=== PATIENT | male | born 1970 | race Two or more races ===

== ENCOUNTER 2024-12-15 12:51 | Inpatient (IN) | payer MEDICAID, OTHER ==
[~2024-12-15] VITALS: Ht 167.6 cm; Wt 96.5 kg
[2024-12-15 02:28] VITALS: PULSE 88; RESP 16
[2024-12-15 13:44] VITALS: PULSE 65; RESP 17; O2SAT 95
--- NOTE | 2024-12-15 13:45 | DVH ---
CHEST RADIOGRAPH Indication: chest pain Technique: Single frontal view of the chest was obtained Comparison: None FINDINGS: Lines and Tubes: None Lungs: No focal consolidation. Pleura: No effusion. No pneumothorax. Cardiomediastinal contours: Unremarkable Bones: Median sternotomy. IMPRESSION: No acute cardiopulmonary disease.
--- NOTE | 2024-12-15 13:59 | ED.PDOC ---
HPI Comments 53Y M with PMHx DM, HTN, CHF, AK, and CABG x3 presents to ED via EMS with chief complaint chest pain x10 days with cough, fever, nausea, vomiting, diarrhea, and constipation. Pt states chest pain radiates to upper torso. Pt denies SOB and dizziness. Per pt, Percocet and Ibuprofen helped relieve the pain last night. Pt had CABG procedure performed on 07/09/2024 at [facility]. No other symptoms/history reported. Chief Complaint: Flu like Time Seen by MD: 13:50 Reviewed Notes: Nurses Notes, Sound Tester Notes, Medications, Allergies Allergies: Coded Allergies: NO KNOWN ALLERGIES (Unverified , 12/15/24) Information Source: Patient, Emergency Med Personnel Mode of Arrival: EMS Brought in by: EMS Severity: Moderate Timing: Days Duration: Since onset Prehospital treatment: 12 Lead EKG Location: Substernal Radiation: Other (torso) Quality: Other Onset: At Rest Cardiac Risk Factors: HTN, Diabetes, Other PE Risk Factors: Recent Surgery History of: Similar pain in past, AK Modifying Factors: Nothing Associated Signs and Symptoms: N/V, Other Past Medical History PAST MEDICAL HISTORY: CHF, DM, HTN, AK Surgical History: CABG Family History Family History: Unknown Social History Smoker: Non-Smoker Alcohol: Denies ETOH Use Drugs: Denies Drug Use Lives In: Home Constitutional: reports: fever; denies: chills, diaphoresis, fatigue, malaise, sweats, weakness, others EENTM: denies: blurred vision, double vision, ear bleeding, ear discharge, ear drainage, ear pain, ear ringing, eye pain, eye redness, hearing loss, mouth pain, mouth swelling, nasal discharge, nose bleeding, nose congestion, nose pain, photophobia, tearing, throat pain, throat swelling, voice changes, others Respiratory: reports: cough; denies: hemoptysis, orthopnea, SOB at rest, shortness of breath, SOB with excertion, stridor, wheezing, others Cardiovascular: reports: chest pain; denies: dizzy spells, diaphoresis, Dyspnea on exertion, edema, irregular heart beat, left arm pain, lightheadedness, palpitations, PND, syncope, others Gastrointestinal: reports: constipated, diarrhea, nausea, vomiting; denies: abdomen distended, abdominal pain, blood streaked bowels, dysphagia, difficulty swallowing, hematemesis, melena, poor appetite, poor fluid intake, rectal bleeding, rectal pain, others Genitourinary: denies: burning, dysuria, flank pain, frequency, hematuria, incontinence, penile discharge, penile sore, pain, testicle pain, testicle swelling, urgency, others Neurological: denies: dizziness, fainting, headache, left sided numbness, left sided weakness, numbness, paresthesia, pre-existing deficit, right sided numbness, right sided weakness, seizure, speech problems, tingling, tremors, weakness, others Musculoskeletal: denies: back pain, gout, joint pain, joint swelling, muscle pain, muscle stiffness, neck pain, others Integumetry: denies: bruises, change in color, change in hair/nails, dryness, laceration, lesions, lumps, rash, wounds, others Allergic/Immunocompromised: denies: Difficulty Healing, Frequent Infections, Hives, Itching, others Hematologic/Lymphatic: denies: anemia, blood clots, easy bleeding, easy bruising, swollen glands, others Endocrine: denies: excessive hunger, excessive sweating, excessive thirst, excessive urination, flushing, intolerance to cold, intolerance to heat, unexplained weight gain, unexplained weight loss, others Psychiatric: denies: anxiety, bipolar disorder, depression, hopeless, panic disorder, schizophrenia, sleepless, suicidal, others All Other Systems: Reviewed and Negative Physical Exam General Appearance: No Apparent Distress, Normal HEENT: Normal ENT Inspection, Pharynx Normal, TMs Normal Neck: Full Range of Motion, Non-Tender, Normal, Normal Inspection Respiratory: Chest Non-Tender, Lungs Clear, No Accessory Muscle Use, No Respiratory Distress, Normal Breath Sounds Cardiovascular: No Edema, No JVD, No Murmur, No Gallop, Normal Peripheral Pulses, Regular Rate/Rhythm Breast Exam: Deferred Gastrointestinal: No Organomegaly, Non Tender, No Pulsatile Mass, Normal Bowel Sounds, Soft Genitalia: Deferred Pelvic: Deferred Rectal: Deferred Extremities: No calf tenderness, Normal capillary refill, Normal inspection, Normal range of motion, Non-tender, No pedal edema Musculoskeletal : Apperance: Normal Neurologic: Alert, manager quality compliance II-XII nml as Tested, No Motor Deficits, Normal Affect, Normal Mood, No Sensory Deficits Cerebellar Function: NOT DONE Reflexes: NOT DONE Skin: Dry, Normal Color, Warm Lymphatic: No Adenopathy Was a procedure done? Was a procedure done?: No CP Differential Dx Differential Diagnosis: MAT, AK Differential Diagnosis: HTN Essential, HTN Accelerated Differential Diagnosis: Chest Wall Pain, Myocardial Infarction, Pericarditis X-Ray, Labs, Meds, VS Vital Signs Date Time Temp Pulse Resp B/P (MAP) Pulse Ox O2 Delivery O2 Flow Rate FiO2 12/15/24 16:35 63 19 106/69 (81) 95 12/15/24 15:57 62 12/15/24 13:55 64 12/15/24 13:44 65 17 95 Nasal Cannula* 2 28 12/15/24 13:43 98.2 65 17 120/82 (95) 95 98.2 12/15/24 13:25 67 12/15/24 13:04 98.6 75 16 128/87 (101) 100 98.6 12/15/24 12:55 66 Lab Test 12/15/24 16:51 12/15/24 14:54 12/15/24 13:46 Range/Units Troponin I High Sensitivity Pending < 3 L < 3 L </=54 ng/L White Blood Count 4.5 4.4-10.8 10^3/uL Red Blood Count 4.62 4.5-5.90 10^6/uL Hemoglobin 14.3 13.5-17.5 g/dL Hematocrit 42.3 41.0-53.0 % Mean Corpuscular Volume 91.7 80.0-100.0 fL Mean Corpuscular Hemoglobin 30.9 28.0-32.0 pg Mean Corpuscular Hemoglobin Concent 33.7 32.0-36.0 g/dL Red Cell Distribution Width 15.2 H 11.8-14.3 % Platelet Count 241 140-450 10^3/uL Mean Platelet Volume 8.5 6.9-10.8 fL Neutrophils (%) (Auto) 39.9 37.0-80.0 % Lymphocytes (%) (Auto) 48.2 10.0-50.0 % Monocytes (%) (Auto) 8.2 0.0-12.0 % Eosinophils (%) (Auto) 3.2 0.0-7.0 % Basophils (%) (Auto) 0.5 0.0-2.0 % Neutrophils # (Auto) 1.8 1.6-8.6 10 ^3/uL Lymphocytes # (Auto) 2.2 0.4-5.4 10 ^3/uL Monocytes # (Auto) 0.4 0-1.3 10 ^3/uL Eosinophils # (Auto) 0.1 0-0.8 10 ^3/uL Basophils # (Auto) 0 0-0.2 10 ^3/uL Nucleated Red Blood Cells 0.2 % Sodium Level 139 136-145 mmol/L Potassium Level 4.6 3.5-5.1 mmol/L Chloride Level 107 98-107 mmol/L Carbon Dioxide Level 22 20-31 mmol/L Anion Gap 10 5-15 Blood Urea Nitrogen 24 H 9-23 mg/dL Creatinine 1.01 0.700-1.30 mg/dL Glomerular Filtration Rate Calc 88 >90 mL/min BUN/Creatinine Ratio 23.8 H 10.0-20.0 Serum Glucose 127 H 74-106 mg/dL Calcium Level 10.4 8.7-10.4 mg/dL [place] [id number] Ph: [phone] DIAGNOSTIC IMAGING Diagnostic Imaging Report : [id number] Signed PATIENT: GEMMA DUMONT ACCT: [id number] UNIT: [id number] : 1970 LOC: ER ROOM / BED: / AGE / SEX: 53 / M ADM STATUS: REG ER SERVICE 1320 ORDERING PHYSICIAN: HARJIT NIELSEN MD PROCEDURE(s): CXRP - CHEST PORTABLE REASON: chest pain ORDER NUMBER(s): [id number], ACCESSION NUMBER(s): [id number] CHEST RADIOGRAPH Indication: chest pain Technique: Single frontal view of the chest was obtained Comparison: None FINDINGS: Lines and Tubes: None Lungs: No focal consolidation. Pleura: No effusion. No pneumothorax. Cardiomediastinal contours: Unremarkable Bones: Median sternotomy. IMPRESSION: No acute cardiopulmonary disease. ATED BY: NGUYỄN REDMOND MD DICTATED DATE/TIME: 12/15/24 1343 SIGNED BY: NGUYỄN REDMOND MD SIGNED DATE/TIME: 12/15/24 1343 CC: Time of 1ST Reevaluation: 14:20 Reevaluation 1ST: Unchanged Patient Education/Counseling: Diagnosis, Treatment Family Education/Counseling: No Family Present Departure 1 Departure Time of Disposition: 17:24 (Patient presented with chest pain that was concerning for possible STEMI, ACS, PE, Pneumonia, Muscle Strain, COPD, Dissection. Data: 1. I ordered and reviewed the result of at least 3 labs including a CBC, BMP, and Troponin. 2. I independently interpreted the following tests: EKG which shows sinus arrhythmia and Chest X-ray which shows benign chest.Risk:This patient has a high risk of morbidity due to further diagnostic testing or treatment and may suffer from an acute cardiac or respiratory disorder. Workup reveals concern for ACS and patient should be admitted for further workup and possible expert consultation. ) Impression: Primary Impression: Acute chest pain Disposition: 09 ADMITTED INPATIENT Admit to: Med Surg Condition: Serious Critical Care Note Critical Care Time?: Yes Critical care comment: Acute chest pain Authorized and Performed by: Harjit Nielsen MD Total critical care time: Approximately 39 minutes Due to a high probability of clinically significant, life threatening deterioration, the patient required my highest level of preparedness to intervene emergently and I personally spent this critical care time directly and personally managing the patient. This critical care time included obtaining a history; examining the patient; pulse oximetry; ordering and review of studies; arranging urgent treatment with development of a management plan; evaluation of patient's response to treatment; frequent reassessment; and, discussions with other providers. This critical care time was performed to assess and manage the high probability of imminent, life-threatening deterioration that could result in multi-organ failure. It was exclusive of separately billable procedures and treating other patients and teaching time. Please see my other sections and the rest of the note for further information on patient assessment and treatment. Stability Stability form required: No Heart Score Heart Score: Heart Score Response (Comments) Value History Moderate Suspicious 1 EKG Repolarization Disturb 1 Age 45-64 1 Risk Factors >3 or Hx ASHD 2 Troponin 1-2 x's Normal limit 1 Total 6 I personally scribed for HARJIT NIELSEN MD ([email or web address]) on 12/15/24 at 13:59. Electronically submitted by Shea Castorena ([facility]). I personally scribed for HARJIT NIELSEN MD ([email or web address]) on 12/15/24 at 14:11. Electronically submitted by Shea Castorena ([email or web address]). HARJIT NIELSEN MD Dec 15, 2024 13:59
[2024-12-15 14:17] LABS: Basophils # (auto) 0 10 ^3/uL (0-0.2); Basophils % (auto) 0.5 % (0.0-2.0); Eosinophils # (auto) 0.1 10 ^3/uL (0-0.8); Eosinophils % (auto) 3.2 % (0.0-7.0); Hematocrit 42.3 % (41.0-53.0); Hemoglobin 14.3 g/dL (13.5-17.5); Lymphocytes # (auto) 2.2 10 ^3/uL (0.4-5.4); Lymphocytes % (auto) 48.2 % (10.0-50.0); Mean Corpuscular Hemoglobin 30.9 pg (28.0-32.0); Mean Corpuscular Hgb Conc. 33.7 g/dL (32.0-36.0); Mean Corpuscular Volume 91.7 fL (80.0-100.0); Monocytes # (auto) 0.4 10 ^3/uL (0-1.3); Monocytes % (auto) 8.2 % (0.0-12.0); Neutrophils # (auto) 1.8 10 ^3/uL (1.6-8.6); Neutrophils % (auto) 39.9 % (37.0-80.0); Nucleated Red Blood Cells % 0.2 %; Platelet Count (auto) 241 10^3/uL (140-450); Red Blood Cells 4.62 10^6/uL (4.5-5.90); Red Cell Distribution Width 15.2 % (11.8-14.3); White Blood Cell 4.5 10^3/uL (4.4-10.8)
[2024-12-15 14:26] LABS: Anion Gap 10 (5-15); Carbon Dioxide 22 mmol/L (20-31); Chloride 107 mmol/L (98-107); Potassium 4.6 mmol/L (3.5-5.1); Sodium 139 mmol/L (136-145)
[2024-12-15 14:27] LABS: Calcium 10.4 mg/dL (8.7-10.4)
[2024-12-15 14:32] LABS: BUN/Creatinine Ratio 23.8 (10.0-20.0)
[2024-12-15 14:33] LABS: Blood Urea Nitrogen 24 mg/dL (9-23); Glucose 127 mg/dL (74-106)
[2024-12-15] MEDS ORDERED: NITROGLYCERIN 0.4 MG SL TAB SL PRN (19:00)
[2024-12-15] MEDS ORDERED: ONDANSETRON HCL 4 MG/2 ML VIAL IV PRN (19:00)
[2024-12-15] MEDS ORDERED: DEXTROSE (50%) 50ML SYRG IV PRN (19:00)
--- NOTE | 2024-12-15 21:11 | DVHHP2 ---
History of Present Illness Reason for Visit: Chest pain History of Present Illness 53-year-old male presents for evaluation of chest pain. Patient reports a 10 day history of intermittent chest pain that radiates across entire chest. He states having shortness for breath and occasional dizziness associated with the chest pain. Denies cough or fever. No other acute complaints reported. Past Medical History Hypertension, diabetes mellitus, mi, CHF Past Surgical History CABG Family History Noncontributory Smoke: No ALCOHOL: none Drugs: None Lives: with Family Review of Systems Review of Systems Review of systems are currently negative otherwise addressed in HPI. Allergies: Coded Allergies: NO KNOWN ALLERGIES (Unverified , 12/15/24) Medications Current Medications Medications Dose Ordered Sig/Afshin Route Start Time Stop Time Status Last Admin Dose Admin Apixaban 2.5 mg BID PO 12/15/24 22:00 Gabapentin 100 mg TID PO 12/15/24 22:00 Metoprolol Tartrate 25 mg BID PO 12/15/24 22:00 Lisinopril 10 mg DAILY PO 12/16/24 10:00 Gemfibrozil 600 mg Q12HR PO 12/15/24 22:00 Atorvastatin Calcium 40 mg HS PO 12/15/24 22:00 Ursodiol 300 mg BID PO 12/15/24 22:00 Aspirin 81 mg DAILY PO 12/16/24 10:00 Diagnostic Test (Pha) 1 strip Q6HR 12/16/24 00:00 Insulin Human Regular Q6HR SC 12/16/24 00:00 Dextrose 50 ml UD PRN IV 12/15/24 19:00 Ondansetron HCl 4 mg Q4HP PRN IV 12/15/24 19:00 Acetaminophen 650 mg Q6HP PRN PO 12/15/24 19:00 Nitroglycerin 0.4 mg Q5MINP PRN SL 12/15/24 19:00 Morphine Sulfate 2 mg Q30M PRN IV 12/15/24 19:00 Exam Vital Signs Vital Signs Date Time Temp Pulse Resp B/P (MAP) Pulse Ox O2 Delivery O2 Flow Rate FiO2 12/15/24 19:30 Nasal Cannula* 2 28 12/15/24 19:30 98.9 66 17 114/79 (91) 95 98.9 Exam Gen: 53-year-old male in no apparent distress. Skin: Warm, dry, normal color and texture, no rash. HEENT: Normocephalic atraumatic, mucous membranes moist and pink. Neck: Cervical and supraclavicular nodes normal without enlargement, trachea is midline, thyroid gland is normal without masses. Pulmonary: Clear to auscultation and percussion bilaterally. Cardiac: Regular rate and rhythm. No murmur Abdomen: Soft, nontender, nondistended, bowel sounds present all 4 quadrants, no guarding, no rigidity, no organomegaly. Extremities: No cyanosis, clubbing, no edema Neuro: Cranial nerves II through XII grossly intact, normal affect and speech, no focal motor deficits. Labs/Xrays AGE / SEX: 53 / M ADM STATUS: REG ER SERVICE 1320 ORDERING PHYSICIAN: HARJIT NIELSEN MD PROCEDURE(s): CXRP - CHEST PORTABLE REASON: chest pain ORDER NUMBER(s): [id number], ACCESSION NUMBER(s): [id number] CHEST RADIOGRAPH Indication: chest pain Technique: Single frontal view of the chest was obtained Comparison: None FINDINGS: Lines and Tubes: None Lungs: No focal consolidation. Pleura: No effusion. No pneumothorax. Cardiomediastinal contours: Unremarkable Bones: Median sternotomy. IMPRESSION: No acute cardiopulmonary disease. Labs Test 12/15/24 16:51 12/15/24 13:46 Range/Units Troponin I High Sensitivity < 3 L </=54 ng/L White Blood Count 4.5 4.4-10.8 10^3/uL Red Blood Count 4.62 4.5-5.90 10^6/uL Hemoglobin 14.3 13.5-17.5 g/dL Hematocrit 42.3 41.0-53.0 % Mean Corpuscular Volume 91.7 80.0-100.0 fL Mean Corpuscular Hemoglobin 30.9 28.0-32.0 pg Mean Corpuscular Hemoglobin Concent 33.7 32.0-36.0 g/dL Red Cell Distribution Width 15.2 H 11.8-14.3 % Platelet Count 241 140-450 10^3/uL Mean Platelet Volume 8.5 6.9-10.8 fL Neutrophils (%) (Auto) 39.9 37.0-80.0 % Lymphocytes (%) (Auto) 48.2 10.0-50.0 % Monocytes (%) (Auto) 8.2 0.0-12.0 % Eosinophils (%) (Auto) 3.2 0.0-7.0 % Basophils (%) (Auto) 0.5 0.0-2.0 % Neutrophils # (Auto) 1.8 1.6-8.6 10 ^3/uL Lymphocytes # (Auto) 2.2 0.4-5.4 10 ^3/uL Monocytes # (Auto) 0.4 0-1.3 10 ^3/uL Eosinophils # (Auto) 0.1 0-0.8 10 ^3/uL Basophils # (Auto) 0 0-0.2 10 ^3/uL Nucleated Red Blood Cells 0.2 % Sodium Level 139 136-145 mmol/L Potassium Level 4.6 3.5-5.1 mmol/L Chloride Level 107 98-107 mmol/L Carbon Dioxide Level 22 20-31 mmol/L Anion Gap 10 5-15 Blood Urea Nitrogen 24 H 9-23 mg/dL Creatinine 1.01 0.700-1.30 mg/dL Glomerular Filtration Rate Calc 88 >90 mL/min BUN/Creatinine Ratio 23.8 H 10.0-20.0 Serum Glucose 127 H 74-106 mg/dL Calcium Level 10.4 8.7-10.4 mg/dL B-Type Natriuretic Peptide 6.42 0-100 pg/mL Assessment/Plan Assessment/Plan Assessment Chest pain rule out ACS Diabetes mellitus Hypertension History of GA Status post CABG (2023) Secondary coagulopathy Plan Admit the patient to telemetry hospitalist Cardiology consultation Echocardiogram pending Resume home medications Continue treatment per orders. Plan discussed with: Patient My Orders Orders - MARIA VICTORIA ZAMORANO AGACNP Procedure Category Date Status Time Apixaban (Eliquis) PHA 12/15/24 In Process 22:00 Gabapentin Capsule PHA 12/15/24 In Process (Neurontin Capsule) 22:00 Metoprolol Tartrate PHA 12/15/24 In Process Tablet (Lopressor Ta 22:00 Lisinopril Tablet PHA 12/16/24 In Process (Zestril Tablet) 10:00 Gemfibrozil Tablet PHA 12/15/24 In Process (Lopid Tablet) 22:00 Atorvastatin (Lipitor) PHA 12/15/24 In Process 22:00 Ursodiol (Actigall) PHA 12/15/24 In Process 22:00 Aspirin Tablet PHA 12/16/24 In Process 10:00 * Cardiology Consult CONS 12/15/24 Transmitted 18:59 Basic Metabolic Panel LAB 12/16/24 Verified 04:00 Glucose Blood PHA 12/16/24 In Process (Accu-Chek Comfort 00:00 Insulin R (Human) PHA 12/16/24 In Process (Insulin R) 00:00 Dextrose 50% Syringe PHA 12/15/24 In Process 19:00 Admit ADMIT 12/15/24 Transmitted 18:59 Ondansetron Hcl PHA 12/15/24 In Process (Zofran) 19:00 Cardiac DIET 12/16/24 Transmitted Diet-2gna,Lofat,Lochol Breakfast Echo 2d Mode Cardiac US 12/15/24 Logged DOP 18:59 Condition: Fair [facility] 12/15/24 In Process 18:59 Acetaminophen Tablet PHA 12/15/24 In Process (Tylenol Tablet) 19:00 Bedrest With Bathroom [facility] 12/15/24 In Process Privileg 18:59 Nitroglycerin PHA 12/15/24 In Process Sublingual (Ntrostat 19:00 Morphine Sulfate PHA 12/15/24 In Process Injection 19:00 Stat Ekg For Chest [facility] 12/15/24 In Process Pain 18:59 Notify Md Of Changes [facility] 12/15/24 In Process From Base 18:59 Plaster Molder For [facility] 12/15/24 In Process 24 Hours 18:59 Emergency Dysrhythmia [facility] 12/15/24 In Process Protocol 18:59 Rhythm Strips Once [facility] 12/15/24 In Process Every Shift 18:59 Oxygen By Nasal RT 12/15/24 Transmitted Cannula 18:59 Date of Service: Dec 15, 2024 Billing Provider: MARIA VICTORIA ZAMORANO Common Visit Codes: [id number] INP/OBS CARE (HIGH) MARIA VICTORIA ZAMORANO Dec 15, 2024 21:10
[2024-12-15] MEDS: GABAPENTIN 100 MG CAP PO SCH (22:31)
[2024-12-15] MEDS: ATORVASTATIN 20 MG TAB PO SCH (22:31)
[2024-12-15] MEDS: METOPROLOL TARTRATE 25 MG TAB PO SCH (22:33)
[2024-12-15] MEDS: GEMFIBROZIL 600 MG TAB PO SCH (22:33)
[2024-12-15] MEDS: APIXABAN 2.5 MG TAB PO SCH (22:33)
[2024-12-16] VITALS (9 sets, daily range): BP systolic 101–126; BP diastolic 47–82; PULSE 64–78; RESP 18–19; TEMP 77–98.3; O2SAT 94–99
[2024-12-16] MEDS: URSODIOL 300 MG CAP PO SCH (00:07)
[2024-12-16] MEDS: ACCU-CHEK COMFORT CURVE STRIP VI SCH (00:08)
[2024-12-16] MEDS: InsuLIN REG 1unit/0.01ml Soln (100units/ml) SC SCH (00:18)
[2024-12-16] MEDS ORDERED: GEMF600T PO (00:48)
[2024-12-16] MEDS ORDERED: EMPA1TAB PO (00:48)
[2024-12-16] MEDS ORDERED: FAMO20TA10 PO (01:01)
[2024-12-16] MEDS ORDERED: MET25T PO ×2 (01:01→02:52)
[2024-12-16] MEDS ORDERED: LISI20TA56 PO (01:11)
[2024-12-16] MEDS ORDERED: ASCO500T11 PO (01:11)
[2024-12-16] MEDS ORDERED: ISOS1TAB28 PO (01:11)
[2024-12-16] MEDS ORDERED: APIX2.5T PO (01:11)
[2024-12-16] MEDS ORDERED: ROSU20TA14 PO (01:11)
[2024-12-16] MEDS ORDERED: GABA-1308 PO (01:11)
[2024-12-16] MEDS ORDERED: CABO1SUS IM (01:13)
[2024-12-16] MEDS ORDERED: ACET-1304 PO (01:17)
[2024-12-16] MEDS ORDERED: METF750T54 PO (01:17)
[2024-12-16] MEDS ORDERED: INSU1INJ26 SC (01:44)
[2024-12-16 07:07] LABS: Chloride 106 mmol/L (98-107); Potassium 4.2 mmol/L (3.5-5.1); Sodium 139 mmol/L (136-145)
[2024-12-16 07:08] LABS: Anion Gap 9 (5-15); Carbon Dioxide 24 mmol/L (20-31)
[2024-12-16 07:09] LABS: Calcium 10.1 mg/dL (8.7-10.4)
--- NOTE | 2024-12-16 07:11 | ECG ---
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
[2024-12-16 07:13] LABS: BUN/Creatinine Ratio 19.8 (10.0-20.0)
--- NOTE | 2024-12-16 07:13 | ECG ---
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
--- NOTE | 2024-12-16 07:13 | ECG ---
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
[2024-12-16 07:21] LABS: Blood Urea Nitrogen 24 mg/dL (9-23); Glucose 149 mg/dL (74-106)
[2024-12-16] MEDS: ACETAMINOPHEN 325 MG TAB PO PRN (08:21)
[2024-12-16 09:12] LABS: Hepatitis B Surface Antigen Negative (Negative); Hepatitis C Antibody Negative (Negative)
[2024-12-16] MEDS: LISINOPRIL 5 MG TAB PO SCH (10:00)
[2024-12-16] MEDS: ASPirin 81 mg TAB PO SCH (10:01)
--- NOTE | 2024-12-16 14:38 | DVHINCON2 ---
Date Seen: Dec 16, 2024 Referring Physician LE Walsh Reason for Consultation Chest pain History of Present Illness This is a 53-year-old male patient who presents to the emergency room with chief complaint of chest pain for 10 days. The patient reports he that he first noted the chest pain approximately 10 days ago while doing chores around the house such as laundry. He reports that the chest pain has been more frequent over the last few days so he decided to come to this facility for further evaluation. He describes the pain as provoked with activity, intermittent, stabbing in nature, substernal with radiation to right and left side of chest. Associated symptoms include shortness of breath and dizziness. He states he has been taking sublingual nitroglycerin at home with relief of symptoms. Initial twelve lead electrocardiogram reveals normal sinus rhythm with first-degree AV block. Serial troponin levels have been negative. Significant past medical history includes severe coronary artery disease status post triple-vessel CABG in 2023, hypertension, dyslipidemia, type 2 diabetes mellitus, and morbid obesity. 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 Of note, the patient is taking Eliquis per medication reconciliation. Patient is unsure as to why he is on Eliquis and does not recall any history of atrial fib rillation or DVT/PE. No previous medical records from this facility found. Past Medical History Past medical history reviewed. No other significant than mentioned above. Past Surgical History Triple-vessel CABG on July 09, 2024 Tonsillectomy Family History: Patient reports no known family medical history. Family History Family history reviewed. Social History Patient has a 10 pack-year history, quit smoking approximately 25 years ago Denies any illicit drug use Denies any alcohol use Allergies: Coded Allergies: NO KNOWN ALLERGIES (Unverified , 12/15/24) Home Meds Reported Medications Metoprolol Tartrate (Lopressor) 25 Mg Tb, 25 MG PO Q12HR, TAB 0 Refills 12/16/24 Insulin Aspart Protamine & Asp (Insulin Aspart Protamine/ (70-30) 100 Unit/ml) 1 Inj Inj, 1 INJ SC BID, INJ 12/16/24 Acetaminophen (Tylenol Extra Strength Fo) 500 Mg Tab, 500 MG PO, TAB 12/16/24 Metformin Hydrochloride (Metformin Hcl Er) 750 Mg Tab, 1 TAB PO TID, #60 TAB 5 Refills 12/16/24 Cabotegravir & Rilpivirine (Cabenuva 600 & 900 mg/3Ml) 1 Julieta Julieta, 1 JULIETA IM for 90 Days, ML 12/16/24 Isosorbide Mononitrate (Isosorbide Mononitrate Er) 30 Mg Tab, 1 TAB PO BID, #30 TAB 5 Refills 12/16/24 Lisinopril (Lisinopril) 20 Mg Tab, 1 TAB PO DAILY, #30 TAB 5 Refills 12/16/24 Apixaban Base (ELIQUIS) 2.5 Mg Tab, 2.5 MG PO BID, TAB 12/16/24 Ascorbic Acid (VITAMIN C TABLET) 500 Mg Tb, 1 TAB PO DAILY, #30 TAB 3 Refills 12/16/24 Rosuvastatin Calcium (Crestor) 20 Mg Tab, 1 TAB PO DAILY, #30 TAB 5 Refills 12/16/24 Gabapentin (Gabapentin) 100 Mg Cap, 1 CAP PO TID, #90 CAP 2 Refills 12/16/24 Famotidine (PEPCID TABLET) 20 Mg Tb, 1 TAB PO BID, #60 TAB 5 Refills 12/16/24 Metoprolol Tartrate (Lopressor) 25 Mg Tb, 25 MG PO Q12HR, TAB 0 Refills 12/16/24 Empagliflozin (Jardiance) 10 Mg Tab, 10 MG PO, TAB 12/16/24 Gemfibrozil (Lopid) 600 Mg Tab, 1 TAB PO BID, #60 TAB 5 Refills 12/16/24 Home Meds Home medications reviewed. Current Medications Current Medications Medications (Trade) Dose Ordered Sig/Afsihn Route PRN Reason Start Time Stop Time Status Last Admin Apixaban (Eliquis) 2.5 mg BID PO 12/15/24 22:00 12/16/24 10:00 Gabapentin (Neurontin Capsule) 100 mg TID PO 12/15/24 22:00 12/16/24 13:55 Metoprolol Tartrate (Lopressor Tablet) 25 mg BID PO 12/15/24 22:00 12/16/24 10:01 Lisinopril (Zestril Tablet) 10 mg DAILY PO 12/16/24 10:00 12/16/24 10:00 Gemfibrozil (Lopid Tablet) 600 mg Q12HR PO 12/15/24 22:00 12/16/24 10:00 Atorvastatin Calcium (Lipitor) 40 mg HS PO 12/15/24 22:00 12/15/24 22:31 Ursodiol (Actigall) 300 mg BID PO 12/15/24 22:00 12/16/24 00:07 Aspirin 81 mg DAILY PO 12/16/24 10:00 12/16/24 10:01 Diagnostic Test (Pha) (Accu-Chek Comfort Curve T) 1 strip Q6HR 12/16/24 00:00 12/16/24 12:39 Insulin Human Regular (InsuLIN R) Q6HR SC 12/16/24 00:00 12/16/24 12:41 Dextrose 50 ml UD PRN IV Blood Sugar LESS THAN 60 12/15/24 19:00 Ondansetron HCl (Zofran) 4 mg Q4HP PRN IV NAUSEA / VOMITING 12/15/24 19:00 Acetaminophen (Tylenol Tablet) 650 mg Q6HP PRN PO PAIN SCALE 1-3 OR TEMP>100.4 12/15/24 19:00 12/16/24 08:21 Nitroglycerin (Ntrostat Sublingual) 0.4 mg Q5MINP PRN SL FOR CHEST PAIN 12/15/24 19:00 Morphine Sulfate 2 mg Q30M PRN IV FOR CHEST PAIN 12/15/24 19:00 Review of Systems Constitutional: No symptom reported Ears, Nose, & Throat: No symptom reported Eyes: No symptom reported Neurological: No symptoms reported Pulmonary/Respiratory: Shortness of breath Cardiovascular: Chest pain Gastrointestinal: No symptom reported Genitourinary: No symptom reported Musculoskeletal: No symptom reported Skin: No symptom reported Psychiatric: No symptom reported Endocrine: No symptom reported Hematologic/Lymphatic: No symptom reported Vital Signs Vital Signs Date Time Temp Pulse Resp B/P (MAP) Pulse Ox O2 Delivery O2 Flow Rate FiO2 12/16/24 11:01 69 12/16/24 10:01 114/70 12/16/24 09:00 77.0 19 96 77.0 12/16/24 08:00 Room Air* 0 21 Physical Exam General Appearance: Cooperative. Morbid obesity Pulmonary/Respiratory: Clear, bilateral breaths sounds. Cardiovascular/Chest: Regular rate and rhythm. Peripheral Pulses: 2+ Radial (R). 2+ Radial (L). 2+ Pedal (R). 2+ Pedal (L) Abdominal Exam: Normal bowel sounds. Ankle Exam: Negative ankle edema Lower extremities: Negative lower extremity edema Neuro/Mental Status: A/OX4, coherent. Thoughts/Psych: Normal thought pattern. Appropriate mood and affect. Good judgment and insight. Appearance: No acute distress. Skin Exam: Normal inspection. Normal color. Warm and dry. Labs/Diagnostic Data Labs Test 12/16/24 12:31 12/16/24 04:46 12/15/24 16:51 12/15/24 13:46 Range/Units POC Glucose 170 H 70-106 mg/dl Sodium Level 139 136-145 mmol/L Potassium Level 4.2 3.5-5.1 mmol/L Chloride Level 106 98-107 mmol/L Carbon Dioxide Level 24 20-31 mmol/L Anion Gap 9 5-15 Blood Urea Nitrogen 24 H 9-23 mg/dL Creatinine 1.21 0.700-1.30 mg/dL Glomerular Filtration Rate Calc 71 >90 mL/min BUN/Creatinine Ratio 19.8 10.0-20.0 Serum Glucose 149 H 74-106 mg/dL Calcium Level 10.1 8.7-10.4 mg/dL Hepatitis B Surface Antigen Negative Negative Hepatitis C Antibody Negative Negative Troponin I High Sensitivity < 3 L </=54 ng/L White Blood Count 4.5 4.4-10.8 10^3/uL Red Blood Count 4.62 4.5-5.90 10^6/uL Hemoglobin 14.3 13.5-17.5 g/dL Hematocrit 42.3 41.0-53.0 % Mean Corpuscular Volume 91.7 80.0-100.0 fL Mean Corpuscular Hemoglobin 30.9 28.0-32.0 pg Mean Corpuscular Hemoglobin Concent 33.7 32.0-36.0 g/dL Red Cell Distribution Width 15.2 H 11.8-14.3 % Platelet Count 241 140-450 10^3/uL Mean Platelet Volume 8.5 6.9-10.8 fL Neutrophils (%) (Auto) 39.9 37.0-80.0 % Lymphocytes (%) (Auto) 48.2 10.0-50.0 % Monocytes (%) (Auto) 8.2 0.0-12.0 % Eosinophils (%) (Auto) 3.2 0.0-7.0 % Basophils (%) (Auto) 0.5 0.0-2.0 % Neutrophils # (Auto) 1.8 1.6-8.6 10 ^3/uL Lymphocytes # (Auto) 2.2 0.4-5.4 10 ^3/uL Monocytes # (Auto) 0.4 0-1.3 10 ^3/uL Eosinophils # (Auto) 0.1 0-0.8 10 ^3/uL Basophils # (Auto) 0 0-0.2 10 ^3/uL Nucleated Red Blood Cells 0.2 % B-Type Natriuretic Peptide 6.42 0-100 pg/mL Assessment Chest pain Coronary artery disease status post triple-vessel CABG (on ASA) Rule out structural heart disease Hypertension Dyslipidemia Type 2 diabetes mellitus History of tobacco use Morbid obesity Plan/Recommendation We will continue with the following plan/recommendations (Dr. Collins): * Transthoracic echocardiogram to evaluate cardiac function and wall motion * Chest pain protocol * HEART score: 5 points (moderate score) * Continue single antiplatelet therapy and lipid-lowering agent * Close Cardiac surveillance Case discussed with . Given the patient's clinical presentation and significant cardiac history, we will recommend for the patient undergo a coronary angiogram with left heart catheterization. The procedure was discussed with the patient in full detail including risks and benefits. Risks include but are not limited to bleeding, contrast-induced nephropathy, stroke, and even . The patient understands and is agreeable to undergo the procedure. We will tentatively schedule the patient on 12/17/24. Thank you for allowing us to care for this patient. Please call with any questions or concerns. Critical care time spent: 44 minutes This medical document was created using an electronic medical record system with voice recognition software and computerized dictation system. Although this document has been carefully reviewed, there might still be some phonetic and typographical errors. Occasional wrong-word or ``sound-alike substitutions may have occurred due to the inherent limitations of voice recognition software. These areas are purely typographical due to imperfections of the software programs and do not reflect any compromise in the patient's medical care. Please read the chart carefully and recognize, using context, where these substitutions have occurred. Plan discussed with: Patient NYHA Physical activity limitations: NA Date of Service: Dec 16, 2024 Billing Provider: SHARLENE GUTIERREZ Cardiology Common Codes: 27401-[id number] INP/OBS CARE (High) Cardiology Consultation Codes: [id number] CONSULT <45MIN SHARLENE GUTIERREZ Dec 16, 2024 14:38
--- NOTE | 2024-12-16 16:28 | DVHPN2 ---
Subjective I am assuming the care of the patient from today onwards who was under the care of the hospitalist team. This is a 53-year-old male with a known history of CAD status post triple-vessel CABG we initially placed the hospital with a chest pain on and off. For last 10 days. 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 Medications Current Medications Medications Dose Ordered Sig/Afshin Route Start Time Stop Time Status Last Admin Dose Admin Apixaban 2.5 mg BID PO 12/15/24 22:00 12/16/24 10:00 2.5 MG Gabapentin 100 mg TID PO 12/15/24 22:00 12/16/24 13:55 100 MG Metoprolol Tartrate 25 mg BID PO 12/15/24 22:00 12/16/24 10:01 25 MG Lisinopril 10 mg DAILY PO 12/16/24 10:00 12/16/24 10:00 10 MG Gemfibrozil 600 mg Q12HR PO 12/15/24 22:00 12/16/24 10:00 600 MG Atorvastatin Calcium 40 mg HS PO 12/15/24 22:00 12/15/24 22:31 40 MG Ursodiol 300 mg BID PO 12/15/24 22:00 12/16/24 00:07 300 MG Aspirin 81 mg DAILY PO 12/16/24 10:00 12/16/24 10:01 81 MG Diagnostic Test (Pha) 1 strip Q6HR 12/16/24 00:00 12/16/24 12:39 1 STRIP Insulin Human Regular Q6HR SC 12/16/24 00:00 12/16/24 12:41 3 UNITS Dextrose 50 ml UD PRN IV 12/15/24 19:00 Ondansetron HCl 4 mg Q4HP PRN IV 12/15/24 19:00 Acetaminophen 650 mg Q6HP PRN PO 12/15/24 19:00 12/16/24 08:21 650 MG Nitroglycerin 0.4 mg Q5MINP PRN SL 12/15/24 19:00 Morphine Sulfate 2 mg Q30M PRN IV 12/15/24 19:00 Acetaminophen/ Hydrocodone Bitart 1 tab Q4HPRN PRN PO 12/16/24 15:00 Laboratory Results Laboratory Tests 12/15/24 13:46 12/16/24 04:46 Chemistry Test 12/16/24 04:46 Calcium Level 10.1 mg/dL (8.7-10.4) Assessment/Plan Assessment/Plan 53-year-old male with a known history of CAD status post triple-vessel CABG, hypertension, dyslipidemia, paroxysmal AFib, diabetes mellitus type 2, morbid obesity class 3 initially presented to hospital with chest pain on left found to have 1. Chest pain on and off bed normal troponin 2. CAD status post triple-vessel CABG 3. Hypertension next 4. Diabetes mellitus type 2 5. Morbid obesity classIII -continue home medication, 2D echo cardiology consultation Physical therapy evaluation and treatment Discharge plan was cleared by Cardiology. Plan discussed with: Patient My Orders Orders - UBALDO POLLARD MD Procedure Category Date Status Time * Specialty Foods Cook CONS 12/16/24 Transmitted Consult Hydrocodone-Acet PHA 12/16/24 In Process 5/325mg Tab ([place] 15:00 Date of Service: Dec 16, 2024 Billing Provider: UBALDO POLLARD MD Common Visit Codes: [id number] INP/OBS CARE(MOD), NOT BILLABLE UBALDO POLLARD MD Dec 16, 2024 16:28
[2024-12-16] MEDS: HYDROcodone-ACET 5/325MG TAB PO PRN (20:09)
[2024-12-17] VITALS (13 sets, daily range): BP systolic 115–134; BP diastolic 58–87; PULSE 61–87; RESP 14–20; TEMP 97.3–97.9; O2SAT 92–98
[2024-12-17 06:12] LABS: Basophils # (auto) 0 10 ^3/uL (0-0.2); Basophils % (auto) 0.5 % (0.0-2.0); Eosinophils # (auto) 0.2 10 ^3/uL (0-0.8); Eosinophils % (auto) 4.1 % (0.0-7.0); Hematocrit 42.3 % (41.0-53.0); Hemoglobin 14.1 g/dL (13.5-17.5); Lymphocytes # (auto) 2.5 10 ^3/uL (0.4-5.4); Lymphocytes % (auto) 48.1 % (10.0-50.0); Mean Corpuscular Hemoglobin 30.2 pg (28.0-32.0); Mean Corpuscular Hgb Conc. 33.3 g/dL (32.0-36.0); Mean Corpuscular Volume 90.8 fL (80.0-100.0); Monocytes # (auto) 0.4 10 ^3/uL (0-1.3); Monocytes % (auto) 7.2 % (0.0-12.0); Neutrophils # (auto) 2.1 10 ^3/uL (1.6-8.6); Neutrophils % (auto) 40.1 % (37.0-80.0); Nucleated Red Blood Cells % 0.1 %; Platelet Count (auto) 232 10^3/uL (140-450); Red Blood Cells 4.66 10^6/uL (4.5-5.90); Red Cell Distribution Width 15.1 % (11.8-14.3); White Blood Cell 5.2 10^3/uL (4.4-10.8)
[2024-12-17 06:27] LABS: INR 1.08 (0.9-1.15); Partial Thromboplastin Time 29.1 SEC (24.5-34.5); Prothrombin Time 11.4 sec (9.3-11.8)
[2024-12-17 06:30] LABS: Anion Gap 8 (5-15); Calcium 10.1 mg/dL (8.7-10.4); Carbon Dioxide 24 mmol/L (20-31); Chloride 104 mmol/L (98-107); Potassium 4.2 mmol/L (3.5-5.1)
[2024-12-17 06:32] LABS: Sodium 136 mmol/L (136-145)
[2024-12-17 06:36] LABS: BUN/Creatinine Ratio 17.8 (10.0-20.0); Blood Urea Nitrogen 19 mg/dL (9-23); Magnesium 2.2 mg/dL (1.6-2.6)
[2024-12-17 06:37] LABS: Cholesterol 172 mg/dL (< 200)
[2024-12-17 06:39] LABS: Glucose 130 mg/dL (74-106); HDL Cholesterol 20 mg/dL (40-59); Triglycerides 493 mg/dL (< 150)
[2024-12-17] MEDS: IODIXANOL 320MG/ML 100ML BTL IV ONE ×3 (14:45→16:35)
[2024-12-17] MEDS: ANGIOMAX 250 MG VIAL IV ONE (14:48)
[2024-12-17] MEDS: fentaNYL CITRATE 100 MCG/2 ML VL ONE (14:48)
[2024-12-17] MEDS: SODIUM CHL 0.9% 50 ML ONE (14:49)
[2024-12-17] MEDS: LIDOCAINE 2%HCL (LOCAL ANESTH.) INJ 20ML MDV ONE (14:49)
[2024-12-17] MEDS: MIDAZOLAM HCL 2MG/2ML 2ml VIAL (1mg/ml) ONE (14:49)
[2024-12-17 14:50] LABS: Urine Bacteria FEW /hpf (None Seen); Urine Blood Negative /uL (Negative); Urine Budding Yeast OCCASIONAL /hpf (None Seen); Urine Clarity Clear (Clear); Urine Color Yellow (Yellow); Urine Protein, UAD TRACE (Negative); Urine Specific Gravity 1.024 (1.001-1.035); Urine Sperm PRESENT /hpf (None Seen); Urine Squamous Epithelial Cell FEW /hpf (<5); Urine Urobilinogen Normal (Negative); Urine WBC 4 /HPF (0-3)
[2024-12-17 15:13] LABS: Opiate Scree,Urine Neg (NEGATIVE)
[2024-12-17 15:23] LABS: Amphetamine Screen, Urine Neg (NEGATIVE); Barbiturate Scree,Urine Neg (NEGATIVE); Benzodiazephine Screen, Urine Neg (NEGATIVE); Cannabinoid Screen, Urine Neg (NEGATIVE); Cocaine Screen, Urine Neg (NEGATIVE); Phencyclidine Screen, Urine Neg (NEGATIVE)
[2024-12-17] MEDS: ATROPINE SULF 1 MG/10ml SYR ONE (16:35)
--- NOTE | 2024-12-17 16:52 | DVHOP2 ---
Operative Report - 2 Report Details Date: 12/17/24 Preop Diagnosis: CAD Postop Diagnosis: significant stenosis of saphenous venous graft to RCA. Successful angioplasty and stenting of saphenous venous graft to RCA. Surgeon: Jas Collins MD Anesthesiologist: Conscious sedation Anesthesia: Mac, Local ( Fentanyl and Versed given. Patient was monitored perioperatively.) Consent: The patient was informed of the risks and benefits of the procedure. These in clude but are not limited to complications of anesthesia, postoperative infection, incomplete relief of symptoms, recurrence of symptoms, damage to blood vessels, nerves and tendons, deep venous thrombosis, pulmonary embolism and possible need for repeat surgery in the future. Complications: No complications. Estimated Blood Loss: 10 cc Findings: Occlusion of LAD. occlusion of obtuse marginal branch. Occlusion of PDA. Stenosis of saphenous graft to RCA. Moderate stenosis of saphenous graft to obtuse marginal. Indications for Surgery: Chest pain Name of Procedure Performed Bilateral cine coronary angiography. Left ventriculography. Visualization of saphenous venous grafts and left internal mammary artery. PTCA and stenting of saphenous venous graft to RCA. Procedure Details Procedure Details: Prior local anesthesia with 2% lidocaine to the right groin and full informed consent obtained under fluoroscopic and ultrasound guidance we placed a six [place] sheath into the femoral artery through which six [place] Candi catheters were used to cannulate both right and left coronary ostia. Ventriculography was not performed. A JR4 was used to cannulate the saphenous grafts to the RCA. He left coronary bypass was used to cannulate the circumflex saphenous graft. An internal mammary catheter was used to cannulate the left internal mammary. No complications. Hemodynamics: Aortic blood pressure was 140/70. End-diastolic pressure was not measured. Coronary anatomy the RCA is large and normal. The PDA is occluded 100% proximally. Posterolateral branches are normal. Left main is large and normal. Left anterior descending is a large vessel it is occluded proximally. Circumflex is large. It is codominant. One large obtuse marginal branch is occluded in its proximal portion. The left internal mammary artery to the LAD is patent. The LAD itself is rather a medium caliber vessel without stenosis in its mid or distal segments. The area of the artery distal to the anastomosis is within normal limits. Saphenous graft to the marginal is patent. There was a 40-50% tubular stenosis of the proximal part of the saphenous graft for the critical obstructions. The 2nd saphenous graft to the RCA has a 99% subtotal stenosis proximally. Ventriculography was not performed. Angioplasty was performed for which Ag are three guide was placed into the ostium of the saphenous graft to the RCA. A Specter wire placed distally. a 2.5 mm by15 mm balloon was used to pre dilate the proximal 95% stenosis of the saphenous graft to the RCA. we then placed a 3-0 by 15 mm Medtronic Currie cathy drug-eluting stent at 20 atmospheres into the proximal ostial segment of the RCA saphenous graft. There was excellent antegrade flow without thrombus formation and/or dissection. Impression: Three-vessel coronary artery disease with stenotic segment of the saphenous graft to the RCA successfully angioplastied. Second saphenous graft to obtuse marginal stenotic mildly. Patent internal mammary artery to the LAD. Recommendations: Dual Antiplatelet therapy. Follow up in 2-3 weeks. Condition Fair Disposition Still a Patient Date of Service: Dec 17, 2024 Billing Provider: JAS COLLINS Sr., MD Cardiology Common Codes: [id number] INP/OBS CARE (High) Cardiology Procedure Codes: 63344-XNDBRE VESSEL W/I VASC FAM, 11307 -PTCA W/STENT PLACEMENT, 07172-JQVE ADD CORONARY BRANCH, 55128-[facility] FOR STEMI W/STENT, 85910-CYTZ ADD COR ART/BRNCH/GRFT, 88907-[facility] HEART CATH W/INTRA INJ JAS COLLINS Sr., MD Dec 17, 2024 16:52
--- NOTE | 2024-12-17 17:07 | DVHPN2 ---
Subjective This is a 53-year-old male with a known history of CAD status post triple- vessel CABG we initially placed the hospital with a chest pain on and off. For last 10 days. 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 Medications Current Medications Medications Dose Ordered Sig/Afshin Route Start Time Stop Time Status Last Admin Dose Admin Gabapentin 100 mg TID PO 12/15/24 22:00 12/16/24 21:03 100 MG Metoprolol Tartrate 25 mg BID PO 12/15/24 22:00 12/16/24 21:04 25 MG Lisinopril 10 mg DAILY PO 12/16/24 10:00 12/16/24 10:00 10 MG Gemfibrozil 600 mg Q12HR PO 12/15/24 22:00 12/16/24 21:03 600 MG Atorvastatin Calcium 40 mg HS PO 12/15/24 22:00 12/16/24 21:03 40 MG Ursodiol 300 mg BID PO 12/15/24 22:00 12/16/24 21:03 300 MG Aspirin 81 mg DAILY PO 12/16/24 10:00 12/16/24 10:01 81 MG Diagnostic Test (Pha) 1 strip Q6HR 12/16/24 00:00 12/17/24 12:00 1 STRIP Insulin Human Regular Q6HR SC 12/16/24 00:00 12/16/24 23:58 3 UNITS Dextrose 50 ml UD PRN IV 12/15/24 19:00 Ondansetron HCl 4 mg Q4HP PRN IV 12/15/24 19:00 Acetaminophen 650 mg Q6HP PRN PO 12/15/24 19:00 12/16/24 08:21 650 MG Nitroglycerin 0.4 mg Q5MINP PRN SL 12/15/24 19:00 Morphine Sulfate 2 mg Q30M PRN IV 12/15/24 19:00 Acetaminophen/ Hydrocodone Bitart 1 tab Q4HPRN PRN PO 12/16/24 15:00 12/16/24 20:09 1 TAB Clopidogrel Bisulfate 75 mg DAILY PO 12/18/24 10:00 Laboratory Results Laboratory Tests 12/17/24 04:39 Chemistry Test 12/17/24 04:39 Calcium Level 10.1 mg/dL (8.7-10.4) Magnesium Level 2.2 mg/dL (1.6-2.6) Coagulation Test 12/17/24 04:39 Prothrombin Time 11.4 sec (9.3-11.8) Prothrombin Time INR 1.08 (0.9-1.15) Activated Partial Thromboplast Time 29.1 SEC (24.5-34.5) Lipid panel Test 12/17/24 04:39 Cholesterol Level 172 mg/dL (< 200) HDL Cholesterol 20 mg/dL (40-59) L Triglycerides Level 493 mg/dL (< 150) H Cardiac Markers Test 12/17/24 04:39 B-Type Natriuretic Peptide 5.73 pg/mL (0-100) HgA1c, TSH Test 12/17/24 04:39 Hemoglobin A1c 7.9 % A1C (<5.7) H Thyroid Stimulating Hormone (TSH) 1.97 uIU/mL (0.55-4.78) Urinalysis Test 12/17/24 14:00 Urine Color Yellow (Yellow) Urine Clarity Clear (Clear) Urine pH 5.0 (5.0-9.0) Urine Specific [place] 1.024 (1.001-1.035) Urine Protein Trace (Negative) H Urine Ketones Negative (Negative) Urine Blood Negative /uL (Negative) Urine Nitrite Negative (Negative) Urine Bilirubin Negative (Negative) Urine Urobilinogen Normal mg/dL (Negative) Urine Leukocyte Esterase 1+ /uL (Negative) Urine RBC 1 /hpf (0 - 3) Urine Microscopic WBC 4 /HPF (0-3) H Urine Squamous Epithelial Cells Few /hpf (<5) Urine Bacteria Few /hpf (None Seen) H Urine Yeast (Budding) Occasional /hpf (None Urine Sperm Present /hpf (None Seen) Urine Glucose Trace mg/dL (Normal) Assessment/Plan Assessment/Plan 53-year-old male with a known history of CAD status post triple-vessel CABG, hypertension, dyslipidemia, paroxysmal AFib, diabetes mellitus type 2, morbid obesity class 3 initially presented to hospital with chest pain on left found to have 1. Chest pain on and off bed normal troponin 2. CAD status post triple-vessel CABG 3. Hypertension next 4. Diabetes mellitus type 2 5. Morbid obesity classIII -continue home medication, 2D echo cardiology consultation -patient is getting left heart catheterization today. Physical therapy evaluation and treatment Discharge plan was cleared by Cardiology. Plan discussed with: Other Date of Service: Dec 17, 2024 Billing Provider: UBALDO POLLARD MD Common Visit Codes: [id number] INP/OBS CARE(MOD) UBALDO POLLARD MD Dec 17, 2024 17:07
--- NOTE | 2024-12-17 18:21 | DVHSR ---
APPROVED REPORT EXAM: Two-dimensional and M-mode echocardiogram with Doppler and color Doppler. Blood Pressure: 159/81 mmHg INDICATION R/O structural heart disease RISK FACTORS Height: 70, Weight: 174 DIMENSIONS LVDd4.3 (3.8-5.7cm)LA (2D)3.8 (1.9-4.0cm)Aortic Root3.9 (2.0-3.7cm) LVDs3.0 (2.5-4.0cm)LA (MM) (1.9-4.0cm)Aortic Cusp Exc1.8 (1.5-2.0cm) EF (%) 58.0 (55-70%)Rt. Atrium3.8 (1.9-4.0cm)Asc. Aorta cm IVSd1.0 (0.7-1.1cm)RV (D) (1.8-2.4cm) PWd1.0 (0.7-1.1cm) Mitral Valve MitralMitral Stenosis E wave0.69m/sMV Mean GR.mmHg A wave0.79m/sMV Peak GR.36mmHg E/A ratio0.92D MVAcm2 DECEL [id number] 1/2 [id number] IVRTmsDop MVA2.85cm2 Aortic Valve Aortic ValveAortic Stenosis V11.05m/Blade Mean GR.4mmHg V21.32m/Blade Peak GR.7mmHg LVOT Diameter1.9 (1.8-2.4cm)Doppler AVA2.25cm2 Pulmonic Valve V20.94m/s Tricuspid Valve TR Velocity2.24m/s [id number] Other Information Technically limited study due to patient sensitve to touch due to post CABG. Conclusion Sinus rhythm. Left atrial enlargement. Aortic root enlargement. Valves are normal. EF of 60% with normal RV function. Dopplers unremarkable. No pericardial effusion masses or vegetations.
[2024-12-18] VITALS (9 sets, daily range): BP systolic 110–149; BP diastolic 67–88; PULSE 62–87; RESP 17–18; TEMP 36.8; O2SAT 95–99
[2024-12-18] MEDS: CLOPIDOGREL BISULFATE 75 MG TAB PO SCH (10:14)
[2024-12-18 10:37] LABS: Anion Gap 7 (5-15); Carbon Dioxide 27 mmol/L (20-31); Chloride 102 mmol/L (98-107); Potassium 3.8 mmol/L (3.5-5.1)
[2024-12-18 10:38] LABS: Calcium 9.7 mg/dL (8.7-10.4)
[2024-12-18 10:43] LABS: BUN/Creatinine Ratio 15.5 (10.0-20.0); Blood Urea Nitrogen 17 mg/dL (9-23); Magnesium 1.9 mg/dL (1.6-2.6)
[2024-12-18 10:45] LABS: Glucose 215 mg/dL (74-106); Sodium 136 mmol/L (136-145)
--- NOTE | 2024-12-18 12:35 | DVHPN2 ---
Consult Progress Note Subjective Review of Systems: CVS:Abnormal (Chest Pain), RESPIRATORY:Abnormal (sob) Objective vital signs Vital Sign Date Time Temp Pulse Resp B/P (MAP) Pulse Ox O2 Delivery O2 Flow Rate FiO2 12/18/24 11:17 72 126/81 12/18/24 09:58 97.8 17 98 97.8 12/18/24 08:00 Room Air* 0 21 Total Intake and Output 12/17/24 12/17/24 12/18/24 15:00 23:00 07:00 Intake Total 0 ml 1600 ml Balance 0 ml 1600 ml medications Current Medications Medications Dose Ordered Sig/Afshin Route Start Time Stop Time Status Last Admin Dose Admin Gabapentin 100 mg TID PO 12/15/24 22:00 12/18/24 06:35 100 MG Metoprolol Tartrate 25 mg BID PO 12/15/24 22:00 12/18/24 10:17 25 MG Lisinopril 10 mg DAILY PO 12/16/24 10:00 12/18/24 10:13 10 MG Gemfibrozil 600 mg Q12HR PO 12/15/24 22:00 12/18/24 10:22 600 MG Atorvastatin Calcium 40 mg HS PO 12/15/24 22:00 12/17/24 21:19 40 MG Ursodiol 300 mg BID PO 12/15/24 22:00 12/17/24 21:19 300 MG Aspirin 81 mg DAILY PO 12/16/24 10:00 12/18/24 10:14 81 MG Diagnostic Test (Pha) 1 strip Q6HR 12/16/24 00:00 12/18/24 11:32 1 STRIP Insulin Human Regular Q6HR SC 12/16/24 00:00 12/18/24 12:21 4 UNITS Dextrose 50 ml UD PRN IV 12/15/24 19:00 Ondansetron HCl 4 mg Q4HP PRN IV 12/15/24 19:00 Acetaminophen 650 mg Q6HP PRN PO 12/15/24 19:00 12/16/24 08:21 650 MG Nitroglycerin 0.4 mg Q5MINP PRN SL 12/15/24 19:00 Morphine Sulfate 2 mg Q30M PRN IV 12/15/24 19:00 Acetaminophen/ Hydrocodone Bitart 1 tab Q4HPRN PRN PO 12/16/24 15:00 12/18/24 10:23 1 TAB Clopidogrel Bisulfate 75 mg DAILY PO 12/18/24 10:00 12/18/24 10:14 75 MG Examination: LUNGS:Abnormal (diminished), CVS:Normal (Telemetry reviewed consistent with sinus rhythm at 81 beats per minute) laboratory and microbiology Laboratory Tests 12/18/24 09:55 12/17/24 04:39 Test 12/18/24 09:55 Range/Units Serum Glucose 215 H 74-106 mg/dL Problem List/Assessment/Plan Problem List/Assessment/Plan Assessment Chest pain Coronary artery disease status post triple-vessel CABG (on ASA) Rule out structural heart disease Hypertension Dyslipidemia Type 2 diabetes mellitus History of tobacco use Morbid obesity Plan/Recommendation We will continue with the following plan/recommendations (Dr. Collins): * Preserved LV and RV function on echo, no significant valvular structural abnormalities. EF 60%. * Chest pain protocol * HEART score: 5 points (moderate score) * Continue single antiplatelet therapy and lipid-lowering agent * Close Cardiac surveillance Case discussed with . S/p coronary angiogram showing three-vessel disease with stenotic segment of SVG to RCA. S/p angioplasty and stent x1 to graft. Continue DAPT with Plavix 75 mg and aspirin 81 mg daily. Continue lipid-lowering agents. Thank you for allowing us to care for this patient. Please call with any questions or concerns. 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 Follow up with Cardiology 2-3 weeks This medical document was created using an electronic medical record system with voice recognition software and computerized dictation system. Although this document has been carefully reviewed, there might still be some phonetic and typographical errors. Occasional wrong-word or ``sound-alike substitutions may have occurred due to the inherent limitations of voice recognition software. These areas are purely typographical due to imperfections of the software programs and do not reflect any compromise in the patient's medical care. Please read the chart carefully and recognize, using context, where these substitutions have occurred. Thank you for allowing me to participate in the management of this patient. The treatment plan was discussed with and agreed upon by patient/family including requesting consultants and ordering of imaging/procedures. Plan discussed with: Patient Dietary Evaluation Review Recommendations by RD: Dietary education by RD Comments: 1) Add 60g CCHO restriction to cardiac diet 2) Refer to outpatient RD/CDCES for diabetes education and weight management 3) Follow-up with cardiology 4) Continue to monitor I&O, labs, and skin integrity Expected Outcomes/Goals: 1) appetite and labs to improve 2) f/u in 3-5 days Date of Service: Dec 18, 2024 Billing Provider: URIAH BERGER Common Visit Codes: [id number] INP/OBS CARE(HIGH) URIAH BERGER Dec 18, 2024 12:35
[2024-12-18] MEDS ORDERED: CLOP75TA70 PO (13:25)
[2024-12-18] MEDS ORDERED: ATOR20TA50 PO (13:25)
[2024-12-18] MEDS ORDERED: ASPI-325 PO (13:25)
--- NOTE | 2024-12-18 15:01 | DVHDS2 ---
Discharge Summary Date of Admission Dec 15, 2024 at 18:59 Date of Discharge: Dec 18, 2024 Labs/Diagnostic Data: Laboratory Results Test 12/18/24 11:29 12/18/24 09:55 12/17/24 14:00 12/17/24 04:39 POC Glucose 243 mg/dl (70-106) Sodium Level 136 mmol/L (136-145) Potassium Level 3.8 mmol/L (3.5-5.1) Chloride Level 102 mmol/L (98-107) Carbon Dioxide Level 27 mmol/L (20-31) Anion Gap 7 (5-15) Blood Urea Nitrogen 17 mg/dL (9-23) Creatinine 1.10 mg/dL (0.700-1.30) Glomerular Filtration Rate Calc 79 mL/min (>90) BUN/Creatinine Ratio 15.5 (10.0-20.0) Serum Glucose 215 mg/dL (74-106) Calcium Level 9.7 mg/dL (8.7-10.4) Magnesium Level 1.9 mg/dL (1.6-2.6) Urine Color Yellow (Yellow) Urine Clarity Clear (Clear) Urine pH 5.0 (5.0-9.0) Urine Specific [place] 1.024 (1.001-1.035) Urine Protein Trace (Negative) Urine Ketones Negative (Negative) Urine Blood Negative /uL (Negative) Urine Nitrite Negative (Negative) Urine Bilirubin Negative (Negative) Urine Urobilinogen Normal mg/dL (Negative) Urine Leukocyte Esterase 1+ /uL (Negative) Urine RBC 1 /hpf (0 - 3) Urine Microscopic WBC 4 /HPF (0-3) Urine Squamous Epithelial Cells Few /hpf (<5) Urine Bacteria Few /hpf (None Seen) Urine Yeast (Budding) Occasional /hpf (None Urine Sperm Present /hpf (None Seen) Urine Glucose Trace mg/dL (Normal) Urine Opiates Screen Neg (NEGATIVE) Urine Fentanyl Screen Neg (NEGATIVE) Urine Barbiturates Screen Neg (NEGATIVE) Urine Phencyclidine Screen Neg (NEGATIVE) Urine Amphetamines Screen Neg (NEGATIVE) Urine Benzodiazepines Screen Neg (NEGATIVE) Urine Cocaine Screen Neg (NEGATIVE) Urine Cannabinoids Screen Neg (NEGATIVE) White Blood Count 5.2 10^3/uL (4.4-10.8) Red Blood Count 4.66 10^6/uL (4.5-5.90) Hemoglobin 14.1 g/dL (13.5-17.5) Hematocrit 42.3 % (41.0-53.0) Mean Corpuscular Volume 90.8 fL (80.0-100.0) Mean Corpuscular Hemoglobin 30.2 pg (28.0-32.0) Mean Corpuscular Hemoglobin Concent 33.3 g/dL (32.0-36.0) Red Cell Distribution Width 15.1 % (11.8-14.3) Platelet Count 232 10^3/uL (140-450) Mean Platelet Volume 8.5 fL (6.9-10.8) Neutrophils (%) (Auto) 40.1 % (37.0-80.0) Lymphocytes (%) (Auto) 48.1 % (10.0-50.0) Monocytes (%) (Auto) 7.2 % (0.0-12.0) Eosinophils (%) (Auto) 4.1 % (0.0-7.0) Basophils (%) (Auto) 0.5 % (0.0-2.0) Neutrophils # (Auto) 2.1 10 ^3/uL (1.6-8.6) Lymphocytes # (Auto) 2.5 10 ^3/uL (0.4-5.4) Monocytes # (Auto) 0.4 10 ^3/uL (0-1.3) Eosinophils # (Auto) 0.2 10 ^3/uL (0-0.8) Basophils # (Auto) 0 10 ^3/uL (0-0.2) Nucleated Red Blood Cells 0.1 % Prothrombin Time 11.4 sec (9.3-11.8) Prothrombin Time INR 1.08 (0.9-1.15) Activated Partial Thromboplast Time 29.1 SEC (24.5-34.5) Hemoglobin A1c 7.9 % A1C (<5.7) B-Type Natriuretic Peptide 5.73 pg/mL (0-100) Triglycerides Level 493 mg/dL (< 150) Cholesterol Level 172 mg/dL (< 200) LDL Cholesterol mg/dL (< 100) HDL Cholesterol 20 mg/dL (40-59) Thyroid Stimulating Hormone (TSH) 1.97 uIU/mL (0.55-4.78) Test 12/16/24 04:46 12/15/24 16:51 Hepatitis B Surface Antigen Negative (Negative) Hepatitis C Antibody Negative (Negative) Troponin I High Sensitivity < 3 ng/L (</=54) Other Laboratory Tests 12/18/24 09:55 12/17/24 04:39 Brief Hx & Hospital Course: 53-year-old male with a known history of CAD status post three-vessel CABG, hypertension, dyslipidemia, diabetes mellitus type 2, morbid obesity class initially presented to the hospital with chest pain found to have normal troponin. Patient does have known history of CAD status post triple-vessel CABG. Cardiology was consulted patient was found to have significant stenosis of the saphenous venous graft to the RCA on left heart catheterization. Successful angioplasty and stenting of the saphenous venous graft was done. Dr. Albert was called who cleared the patient to be discharged. Patient has stated that [facility]. [facility] be [facility] to [facility]. Aspirin statin and Plavix has been prescribed. Patient has stated that she does not know why he is on Eliquis. Eliquis has been stopped and he needs to follow up with the PCP in one week. Also follow up with Dr. Albert in 1-2 weeks Condition at Discharge: Fair Final Diagnosis/Problems List 53-year-old male with a known history of CAD status post triple-vessel CABG, hypertension, dyslipidemia, paroxysmal AFib, diabetes mellitus type 2, morbid obesity class 3 initially presented to hospital with chest pain on left found to have 1. Chest pain status post left heart catheterization significant stenosis of saphenous venous graft to RCA. Successfulangioplasty and stenting of saphenous venous graft to RCA. 2. CAD status post triple-vessel CABG 3. Hypertension next 4. Diabetes mellitus type 2 5. Morbid obesity classIII Discharge Disposition: Home SNF Discharge Will this Physician continue t: No Discharge Instruct/Medications Diet: Cardiac 2g Na,low cholest Diet comment: 1999 ADA diet Activity: No Restrictions, As Tolerated Follow Up/Referral: Follow up with the PCP in one week Follow up with Dr. Collins in 1-2 weeks Medications: Aspirin, statin, Plavix as prescribed Discharge Statement: "Patient was advised to return to the ER or call 911 if any headaches, dizziness, shortness of breath, chest pain, abdominal pain, bleeding, fevers, or worsening of medical condition. Patient was counseled about treatment plan, medications, possible side effects, patientverbalized understanding. All questions were answered to the best of my ability. This discharge took greater then 30 minutes in planning, reviewing documentation, counseling the patient, and discussing with other team members." ASSESSMENT ASSESSMENT Assessment 53-year-old male with a known history of CAD status post triple-vessel CABG, hypertension, dyslipidemia, paroxysmal AFib, diabetes mellitus type 2, morbid obesity class 3 initially presented to hospital with chest pain on left found to have 1. Chest pain status post left heart catheterization significant stenosis of saphenous venous graft to RCA. Successfulangioplasty and stenting of saphenous venous graft to RCA. 2. CAD status post triple-vessel CABG 3. Hypertension next 4. Diabetes mellitus type 2 5. Morbid obesity classIII Date of Service: Dec 18, 2024 Billing Provider: UBALDO POLLARD MD Common Visit Codes: [id number] DISCH DAY >30min UBALDO POLLARD MD Dec 18, 2024 15:01
[2024-12-19] MEDS: MORPHINE SULFATE INJ 2 MG/ml SYRG IV PRN (00:27)
[2024-12-19 01:00] VITALS: BP 122/80; PULSE 73; RESP 18; TEMP 98.5; O2SAT 99
[2024-12-19 05:00] VITALS: BP 133/84; PULSE 67; RESP 18; TEMP 98.7; O2SAT 98
[2024-12-19 08:00] VITALS: PULSE 54; RESP 16
[2024-12-19 09:00] VITALS: BP 111/57; PULSE 57; RESP 16; TEMP 98.2; O2SAT 100
== END 2024-12-19 11:35 | disposition home or self-care (01) | DRG 182 ==
LOC: ER 12:51 → EDBD 12:51 → OVERFLOW 18:59 → TELE-WESTW 19:03
PROVIDERS: ADMIT Internal Medicine; ATTEND Internal Medicine
PROC: 05WY3JZ Revision of Synthetic Substitute in Upper Vein, Percutaneous Approach (ICD-10-PCS; principal; 2024-12-17)
PROC: B211YZZ Fluoroscopy of Multiple Coronary Arteries using Other Contrast (ICD-10-PCS; 2024-12-17)
PROC: B213YZZ Fluoroscopy of Multiple Coronary Artery Bypass Grafts using Other Contrast (ICD-10-PCS; 2024-12-17)
PROC: B218YZZ Fluoroscopy of Left Internal Mammary Bypass Graft using Other Contrast (ICD-10-PCS; 2024-12-17)
PROC: 4A023N7 Measurement of Cardiac Sampling and Pressure, Left Heart, Percutaneous Approach (ICD-10-PCS; 2024-12-17)
DX: T82.858A Stenosis of other vascular prosthetic devices, implants and grafts, initial encounter (principal); I11.0 Hypertensive heart disease with heart failure; I50.9 Heart failure, unspecified; E11.9 Type 2 diabetes mellitus without complications; I25.10 Atherosclerotic heart disease of native coronary artery without angina pectoris; I48.0 Paroxysmal atrial fibrillation; I44.0 Atrioventricular block, first degree; E66.01 Morbid (severe) obesity due to excess calories; E78.5 Hyperlipidemia, unspecified; Z95.1 Presence of aortocoronary bypass graft; Z79.82 Long term (current) use of aspirin; K59.00 Constipation, unspecified; I25.2 Old myocardial infarction; Z87.891 Personal history of nicotine dependence; Z79.01 Long term (current) use of anticoagulants; Z79.84 Long term (current) use of oral hypoglycemic drugs; Z79.899 Other long term (current) drug therapy; Z79.4 Long term (current) use of insulin; Z68.41 Body mass index [BMI] 40.0-44.9, adult
CPT/HCPCS: 36415; 71045; 80048; 80061; 80307; 81001; 82962; 83036; 83735; 83880; 84443; 84484; 85025; 85610; 85730; 86803; 86850; 86900; 86901; 87340; 92928; 93005; 93306; 93459; 99152; 99291; G0378; J1815; J2250; Q9967